=== PATIENT | male | born 1945 | race Caucasian/White ===

== ENCOUNTER → 2016-11-22 | Outpatient (CLI) | payer MEDICARE, OTHER ==
[~2016-11-22] MED LIST: CYCL-36 PO; GABA600T PO; LISI-360 PO; METO25CR PO; MORP20SO PO; PLAV75TA PO
[2016-11-22 10:08] LABS: HEMATOCRIT 39.2 % (39.0-51.0); MEAN CELL VOLUME 89.5 FL (80.0-100.0); MEAN CORPUSCULAR HEMOGLOBIN 29.8 PG (27.0-34.0); MEAN CORPUSCULAR HGB CONC 33.3 % (32.0-36.0); PLATELET COUNT 379 TH/MM3 (150-450); RED BLOOD COUNT 4.38 MIL/MM3 (4.50-5.90); RED CELL DISTRIBUTION WIDTH 14.5 % (11.6-17.2); REVIEW FLAG FINAL; WHITE BLOOD COUNT 10.8 TH/MM3 (4.0-11.0)
[2016-11-22 10:40] LABS: ALKALINE PHOSPHATASE 194 U/L (45-117); ALT (GPT) 16 U/L (12-78); ANION GAP 6 MEQ/L (5-15); AST (GOT) 16 U/L (15-37); BICARBONATE 29.3 MEQ/L (21.0-32.0); BLOOD UREA NITROGEN 8 MG/DL (7-18); CHLORIDE 104 MEQ/L (98-107); GLOMERULAR FILTRATION RATE 93 ML/MIN (>89); GLUCOSE,FASTING 90 MG/DL (74-99); HDL CHOLESTEROL 40.3 MG/DL (40.0-60.0); LDL CHOLESTEROL 74 MG/DL (0-99); POTASSIUM 3.7 MEQ/L (3.5-5.1); SODIUM (NA) 139 MEQ/L (136-145); TOTAL BILIRUBIN ADULT 0.3 MG/DL (0.2-1.0)
== END ==
LOC: PLAB 08:22
PROVIDERS: ATTEND Family Medicine
DX: G89.29 Other chronic pain (principal); I25.10 Atherosclerotic heart disease of native coronary artery without angina pectoris; M51.9 Unspecified thoracic, thoracolumbar and lumbosacral intervertebral disc disorder; R73.01 Impaired fasting glucose; I10 Essential (primary) hypertension; E78.4 Other hyperlipidemia
CPT/HCPCS: 36415; 80053; 80061; 84443; 85027

== ENCOUNTER → 2016-12-15 | Outpatient (CLI) | payer MEDICARE, OTHER ==
[2016-12-17 23:52] LABS: THYROGLOB ABS LESS THAN 1 IU/mL (< OR = 1); THYROGLOBULN 30.7 ng/mL (())
== END ==
LOC: PLAB 07:53
PROVIDERS: ATTEND Family Medicine
DX: E78.4 Other hyperlipidemia (principal)
CPT/HCPCS: 36415; 84432; 84443; 86376; 86800

== ENCOUNTER → 2017-01-31 | Outpatient (CLI) | payer MEDICARE, OTHER | LOC: PLAB 08:51 | PROVIDERS: ATTEND Family Medicine | DX: E03.8 Other specified hypothyroidism (principal) | CPT/HCPCS: 36415; 84443 ==

== ENCOUNTER → 2017-03-22 | Outpatient (CLI) | payer MEDICARE, OTHER ==
[2017-03-22 10:05] LABS: HEMATOCRIT 41.6 % (39.0-51.0); MEAN CELL VOLUME 89.4 FL (80.0-100.0); MEAN CORPUSCULAR HEMOGLOBIN 29.6 PG (27.0-34.0); MEAN CORPUSCULAR HGB CONC 33.1 % (32.0-36.0); PLATELET COUNT 368 TH/MM3 (150-450); RED BLOOD COUNT 4.65 MIL/MM3 (4.50-5.90); RED CELL DISTRIBUTION WIDTH 14.7 % (11.6-17.2); REVIEW FLAG FINAL; WHITE BLOOD COUNT 12.6 TH/MM3 (4.0-11.0)
[2017-03-22 10:56] LABS: ANION GAP 10 MEQ/L (5-15); AST (GOT) 25 U/L (15-37); BICARBONATE 26.9 MEQ/L (21.0-32.0); BLOOD UREA NITROGEN 9 MG/DL (7-18); CHLORIDE 103 MEQ/L (98-107); GLOMERULAR FILTRATION RATE 97 ML/MIN (>89); GLUCOSE,FASTING 83 MG/DL (74-99); POTASSIUM 3.5 MEQ/L (3.5-5.1); SODIUM (NA) 140 MEQ/L (136-145)
[2017-03-22 11:09] LABS: ALKALINE PHOSPHATASE 202 U/L (45-117); ALT (GPT) 34 U/L (12-78); HDL CHOLESTEROL 35.7 MG/DL (40.0-60.0); LDL CHOLESTEROL 43 MG/DL (0-99); TOTAL BILIRUBIN ADULT 0.3 MG/DL (0.2-1.0)
[2017-03-22 12:55] LABS: HEMOGLOBIN A1a 1.7 %; HEMOGLOBIN A1b 0.9 %; HEMOGLOBIN Ao 83.9 %; HEMOGLOBIN F 1.2 %; HEMOGLOBIN P3 3.7 %
== END ==
LOC: PLAB 06:59
PROVIDERS: ATTEND Family Medicine
DX: I83.10 Varicose veins of unspecified lower extremity with inflammation (principal); G89.29 Other chronic pain; I25.10 Atherosclerotic heart disease of native coronary artery without angina pectoris; M51.9 Unspecified thoracic, thoracolumbar and lumbosacral intervertebral disc disorder; R73.01 Impaired fasting glucose; I10 Essential (primary) hypertension; E78.4 Other hyperlipidemia
CPT/HCPCS: 36415; 80053; 80061; 83036; 84443; 85027

== ENCOUNTER → 2017-04-01 | Outpatient (CLI) | payer MEDICARE, OTHER ==
[~2017-04-01] MED LIST changes: +CYCL1TAB29 PO; +GABA100C4 PO; +LEVO50TA4 PO; +LISI10TA3 PO; +METO25TA3 PO; +MORP1TAB25 PO; +PLAV75TA29 PO; +SIMV5TAB3 PO; +TRAZ100T6 PO
[2017-04-01 09:10] LABS: MEAN CELL VOLUME 89.4 FL (80.0-100.0); MEAN CORPUSCULAR HEMOGLOBIN 28.7 PG (27.0-34.0); MEAN CORPUSCULAR HGB CONC 32.1 % (32.0-36.0); PLATELET COUNT 299 TH/MM3 (150-450); RED BLOOD COUNT 4.36 MIL/MM3 (4.50-5.90); RED CELL DISTRIBUTION WIDTH 15.3 % (11.6-17.2); REVIEW FLAG FINAL; WHITE BLOOD COUNT 11.4 TH/MM3 (4.0-11.0)
[2017-04-01 09:16] LABS: BLOOD, URINE NEG (NEG); GLUCOSE,URINE NEG (NEG); KETONE, URINE NEG (NEG); NITRITE,URINE NEG (NEG); PH, URINE 6.5 (5.0-8.5); URINE COLOR YELLOW (YELLW/STRAW)
[2017-04-01 09:17] LABS: APTT (PATIENT) 28.1 SEC (24.3-30.1); PROTHROMBIN TIME - PATIENT 11.6 SEC (9.8-11.6)
[2017-04-01 09:23] LABS: COMMENT (UR) CULT NOT INDICATED; CULTURE IF INDICATED CULT NOT INDICATED
[2017-04-01 09:39] LABS: BICARBONATE 25.7 MEQ/L (21.0-32.0); POTASSIUM 4.3 MEQ/L (3.5-5.1)
--- NOTE | 2017-04-01 13:40 | EKG ---
Date Performed: 04/01/2017 Time Performed: 08:46:46 PTAGE: 71 years EKG: Sinus rhythm INCOMPLETE RIGHT BUNDLE BRANCH BLOCK BORDERLINE ECG Compared to prior tracing no significant change PREVIOUS TRACING 08/13/2011 [id number] DOCTOR: Renzo Vides Interpretating Date/Time 04/01/2017 13:37:08
== END ==
LOC: CPRE 07:56
PROVIDERS: ATTEND Orthopaedic Surgery
DX: Z01.810 Encounter for preprocedural cardiovascular examination (principal); Z01.812 Encounter for preprocedural laboratory examination; M16.11 Unilateral primary osteoarthritis, right hip; I25.10 Atherosclerotic heart disease of native coronary artery without angina pectoris; M79.609 Pain in unspecified limb; R94.31 Abnormal electrocardiogram [ECG] [EKG]
CPT/HCPCS: 36415; 80048; 81001; 85027; 85610; 85730; 93005

== ENCOUNTER → 2017-04-11 | Day surgery (SDC) | payer MEDICARE, OTHER ==
[~2017-04-11] VITALS: Ht 185.4 cm; Wt 83.5 kg
[~2017-04-11] MED LIST changes: +ACETAMINOPHEN/HYDROcodone 325 MG/7.5 MG TAB PO PRN; +ASPIRIN EC 81 MG TABEC PO SCH; +CHLORHEXIDINE GLUCONATE 2 % 1 PACK (2 CLOTHS) TOPICAL PRN; +CHLORHEXIDINE GLUCONATE 4% SOLN 120 ML BTL TOPICAL SCH; -CYCL-36 PO; +DOCUSATE SODIUM 100 MG CAP PO SCH; +EXPAREL PERI-ARTICULAR INJECTION (TOTAL VOL. 60 ML) P-ARTICULR SCH; -GABA600T PO; +INSULIN HUMAN REGULAR 1,000 UNITS/10 ML VIAL SQ PRN; +KETOROLAC TROMETHAMINE 30 MG/ML (IVP) VIAL IVP SCH; +LACTATED RINGER'S 1000 ML INJ 1,000 ML IV SCH; +LACTATED RINGER'S 1000 ML IV PRN; -LISI-360 PO; +MAGNESIUM HYDROXIDE SUSP 30 ML CUP PO PRN; -METO25CR PO; +METOPROLOL TARTRATE 25 MG TAB PO PRN; -MORP20SO PO; +ONDANSETRON HCL 4 MG/2 ML VIAL IVP PRN; -PLAV75TA PO; +POVIDONE IODINE 5% (ANTISEPSIS KIT) 4 APPLICATIONS EACH NARE PRN; +Post-op Orders (for Pharmacy) MISC XX ONE; +SODIUM CHLORID 0.9% 500 ML IV PRN; +SODIUM CHLORIDE 0.9% FLUSH 5 ML FLUSH IVF PRN; +SODIUM CHLORIDE 0.9% FLUSH 5 ML FLUSH IVF SCH; +SODIUM CHLORIDE 0.9% IV SCH; +TRANEXAMIC ACID INJ 0 MG in SODIUM CHLORIDE 0.9% INJ 100 ML IV SCH; +TRANEXAMIC ACID IV SCH; +ZOLPIDEM TARTRATE 5 MG TAB PO PRN; +ceFAZolin 2 GM PREMIX 50 ML IV SCH
[2017-04-11 07:30] VITALS: BP 172/87; PULSE 87; RESP 18; TEMP 98.2; O2SAT 98
== END | disposition home or self-care (01) ==
LOC: HSDC 07:21 → UNDOADMIN 07:21 → HSDI 07:21 → EDSTATUS 10:00 → HSDI 04-12 06:48 → UNDOADMIN 04-12 06:48 → HSDC 04-12 06:51
PROVIDERS: ATTEND Orthopaedic Surgery
DX: M16.11 Unilateral primary osteoarthritis, right hip (principal); Z53.09 Procedure and treatment not carried out because of other contraindication
CPT/HCPCS: 99211; G0463

== ENCOUNTER 2017-04-25 15:18 | Inpatient (IN) | payer MEDICARE, OTHER ==
[~2017-04-25] VITALS: Ht 185.4 cm; Wt 86.8 kg
[~2017-04-25 15:18] MED LIST changes: -ACETAMINOPHEN/HYDROcodone 325 MG/7.5 MG TAB PO PRN; -ASPIRIN EC 81 MG TABEC PO SCH; -CHLORHEXIDINE GLUCONATE 2 % 1 PACK (2 CLOTHS) TOPICAL PRN; -CHLORHEXIDINE GLUCONATE 4% SOLN 120 ML BTL TOPICAL SCH; -DOCUSATE SODIUM 100 MG CAP PO SCH; -EXPAREL PERI-ARTICULAR INJECTION (TOTAL VOL. 60 ML) P-ARTICULR SCH; -INSULIN HUMAN REGULAR 1,000 UNITS/10 ML VIAL SQ PRN; -KETOROLAC TROMETHAMINE 30 MG/ML (IVP) VIAL IVP SCH; -LACTATED RINGER'S 1000 ML INJ 1,000 ML IV SCH; -LACTATED RINGER'S 1000 ML IV PRN; -MAGNESIUM HYDROXIDE SUSP 30 ML CUP PO PRN; -METOPROLOL TARTRATE 25 MG TAB PO PRN; -ONDANSETRON HCL 4 MG/2 ML VIAL IVP PRN; -POVIDONE IODINE 5% (ANTISEPSIS KIT) 4 APPLICATIONS EACH NARE PRN; -Post-op Orders (for Pharmacy) MISC XX ONE; -SODIUM CHLORID 0.9% 500 ML IV PRN; -SODIUM CHLORIDE 0.9% FLUSH 5 ML FLUSH IVF PRN; -SODIUM CHLORIDE 0.9% FLUSH 5 ML FLUSH IVF SCH; -SODIUM CHLORIDE 0.9% IV SCH; -TRANEXAMIC ACID INJ 0 MG in SODIUM CHLORIDE 0.9% INJ 100 ML IV SCH; -TRANEXAMIC ACID IV SCH; -ZOLPIDEM TARTRATE 5 MG TAB PO PRN; -ceFAZolin 2 GM PREMIX 50 ML IV SCH
[2017-04-26] MEDS ORDERED: CHLORHEXIDINE GLUCONATE 2 % 1 PACK (2 CLOTHS) TOPICAL PRN (08:00)
[2017-04-26] MEDS ORDERED: SODIUM CHLORID 0.9% 500 ML IV PRN (08:00)
[2017-04-26] MEDS ORDERED: POVIDONE IODINE 5% (ANTISEPSIS KIT) 4 APPLICATIONS EACH NARE PRN (08:00)
[2017-04-26] MEDS ORDERED: METOPROLOL TARTRATE 25 MG TAB PO PRN (08:00)
[2017-04-26] MEDS ORDERED: LACTATED RINGER'S 1000 ML IV PRN (08:00)
[2017-04-26] MEDS ORDERED: INSULIN HUMAN REGULAR 1,000 UNITS/10 ML VIAL SQ PRN (08:00)
[2017-04-26] MEDS ORDERED: CHLORHEXIDINE GLUCONATE 4% SOLN 120 ML BTL TOPICAL SCH (08:15)
[2017-04-26] MEDS ORDERED: ceFAZolin 2 GM PREMIX 50 ML IV SCH (08:15)
[2017-04-26] MEDS ORDERED: GENTAMICIN SULFATE 80 MG/2 ML VIAL ONE (08:26)
[2017-04-26 08:30] VITALS: BP 134/77; PULSE 68; RESP 18; TEMP 98.5; O2SAT 99
[2017-04-26] MEDS ORDERED: EXPAREL PERI-ARTICULAR INJECTION (TOTAL VOL. 60 ML) P-ARTICULR SCH ×2 (09:00)
[2017-04-26] MEDS ORDERED: SODIUM CHLORIDE 0.9% IV SCH ×2 (09:00→12:00)
[2017-04-26] MEDS ORDERED: TRANEXAMIC ACID IV SCH ×2 (09:00→12:00)
[2017-04-26] MEDS ORDERED: fentaNYL CITRATE 250 MCG/5 ML AMP ONE (09:18)
[2017-04-26] MEDS ORDERED: DEXAMETHASONE SOD PHOS 4 MG/ML VIAL ONE (09:18)
[2017-04-26] MEDS ORDERED: MIDAZOLAM HCL 2 MG/2 ML VIAL ONE (09:18)
[2017-04-26] MEDS ORDERED: ACETAMINOPHEN 1000 MG/100 ML VIAL IV ONE (09:18)
[2017-04-26] MEDS ORDERED: FAMOTIDINE 20 MG/2 ML VIAL ONE (09:19)
[2017-04-26] MEDS ORDERED: SODIUM CHLORIDE 0.9% FLUSH 5 ML FLUSH IVF PRN (09:30)
[2017-04-26] MEDS ORDERED: BISACODYL 10 MG SUPP RECTAL PRN (09:30)
[2017-04-26] MEDS ORDERED: ONDANSETRON HCL 4 MG/2 ML VIAL IVP PRN (09:30)
[2017-04-26] MEDS ORDERED: MORPHINE SULFATE 8 MG/ML INJ IV PUSH PRN (09:30)
[2017-04-26] MEDS ORDERED: ACETAMINOPHEN/HYDROcodone 325 MG/7.5 MG TAB PO PRN (09:30)
[2017-04-26] MEDS ORDERED: TRANEXAMIC ACID INJ 0 MG in SODIUM CHLORIDE 0.9% INJ 100 ML IV SCH (09:30)
[2017-04-26] MEDS ORDERED: Post-op Orders (for Pharmacy) MISC XX ONE (09:30)
[2017-04-26] MEDS ORDERED: ONDANSETRON HCL 4 MG/2 ML VIAL IV PUSH ONE (12:00)
[2017-04-26] MEDS ORDERED: PROPOFOL 200 MG/20 ML AMP IV ONE (12:00)
[2017-04-26] MEDS ORDERED: LACTATED RINGER'S 1000 ML INJ 1,000 ML IV ONE (12:00)
[2017-04-26] MEDS ORDERED: NEOSTIGMINE 3 MG/3 ML SYR IV ONE (12:00)
[2017-04-26] MEDS ORDERED: PHENYLEPH/NS 1000 MCG/10 ML SYR IV ONE (12:00)
[2017-04-26] MEDS ORDERED: ePHEDrine/NS 25 MG/5 ML SYR IV ONE (12:00)
[2017-04-26] MEDS ORDERED: *morphine SULFATE 8 MG/ML PERIprocedure ONLY ONE ×2 (12:14→12:19)
[2017-04-26] MEDS: LACTATED RINGER'S 1000 ML INJ 1,000 ML IV SCH ×2 (12:32→20:35)
[2017-04-26] MEDS: KETOROLAC TROMETHAMINE 30 MG/ML (IVP) VIAL IVP SCH ×3 (12:35→22:39)
--- NOTE | 2017-04-26 12:49 | RADRPT ---
EXAM DATE/TIME: 04/26/2017 12:17 [place] COMPARISON: No previous studies available for comparison. INDICATIONS : Post op right hip arthroplasty. MEDICAL HISTORY : None. SURGICAL HISTORY : None. ENCOUNTER: Initial ACUITY: 1 day PAIN SCORE: 6/10 LOCATION: Right hip FINDINGS: AP and lateral views of the right hip joint following total hip arthroplasty demonstrate non-cemented acetabular and femoral hardware in place. There are 2 acetabular screws visualized. Soft tissue air is present, as expected. No concerning abnormality is identified. CONCLUSION: Expected changes are identified following recent right total hip arthroplasty. Chuck Sanchez MD on April 26, 2017 at 12:46 Board Certified Radiologist. This report was verified electronically.
[2017-04-26] MEDS ORDERED: DO NOT ADM ANY ANTICOAGULANT DRUGS PRN (13:00)
[2017-04-26 13:23] VITALS: BP 142/74; PULSE 68; RESP 17; TEMP 96.6; O2SAT 99
[2017-04-26] MEDS: CYCLOBENZAPRINE HCL 10 MG TAB PO SCH ×2 (13:27→18:27)
[2017-04-26] MEDS: MORPHINE SULFATE 30 MG CONTROLLED RELEASE TAB PO SCH ×2 (13:27→20:34)
--- NOTE | 2017-04-26 15:07 | PD.CONS ---
HPI Service [facility] Hospitalists Consult Requested By Dr. Krishnamurthy Reason for Consult Medical management. Primary Care Physician Yolande Krause MD Diagnoses: (1) Primary osteoarthritis of right hip (2) Status post total hip replacement, right History of Present Illness Written by Iris Hernandez, acting as scribe for Dr. Guzman on 04/26/17 at 17: 00. Mr. Lainez is a 71-year-old male patient with a known medical history of hypertension and hyperlipidemia who underwent a right total hip replacement today by Dr. Krishnamurthy. Hospitalist team has been consulted for medical management. Patient states that he has suffered from osteoarthritis of the lower spine and right hip which was conservatively managed in the outpatient setting. Patient has noticed over the past couple months that the pain from his right hip and groin area, worsened and patient eventually obtained an MRI relieving severe osteoarthritis. Denies any recent illness including fever, chills, cough, shortness of breath, abdominal pain, nausea, vomiting, diarrhea or dysuria. PCP is Dr. Krause. Hay Baler is Dr. Carvajal whom saw patient prior to surgery and performed a stress test which was negative. Review of Systems Musculoskeletal: COMPLAINS OF: Joint pain (right hip pain) Except as stated in HPI: all other systems reviewed are Neg Past Family Social History Allergies: Coded Allergies: Ultram (Verified Allergy, Unknown, Swelling, 04/26/17) STATES HE IS NOT ALLERGIC TO ULTRAM AND HAS BEEN ON IT FOR MANY YEARS Past Medical History Osteoarthritis of the right hip and lower lumbar spine Hyperlipidemia Hypertension Chronic nerve pain Cardiac stent x 2 Chronic hip and back pain Hypothyroidism Past Surgical History Bilateral cataract surgery Hernia repair with mesh placement Lumbar back fusion 2003 Splenectomy with benign pancreas tumor 2007 Left elbow fusion, ulnar damage Cardiac stent placement x 2 Reported Medications Reported Meds & Active Scripts Active Reported Simvastatin 5 Mg Tab 8 Mg PO DAILY Levothyroxine (Levothyroxine Sodium) 50 Mcg Tab 50 Mcg PO DAILY Trazodone (Trazodone HCl) 100 Mg Tablet 200 Mg PO HS Morphine ER (Morphine Sulfate) 30 Mg Tab 30 Mg PO Q8H Metoprolol Tartrate 25 Mg Tab 25 Mg PO BID Lisinopril 10 Mg Tab 10 Mg PO DAILY Gabapentin 100 Mg Cap 150 Mg PO QID PT REPORTS THAT HIS DOSE IS 150MG Flexeril (Cyclobenzaprine HCl) 10 Mg Tab 10 Mg PO TID Plavix (Clopidogrel Bisulfate) 75 Mg Tab 75 Mg PO DAILY Active Ordered Medications Current Medications Medications (Trade) Dose Ordered Sig/Severino Route Start Time Stop Time Status Last Admin Lactated Ringer's 1,000 ml @ 30 mls/hr Q24H PRN IV 04/26/17 08:00 04/29/17 07:59 04/26/17 08:25 (NS 500 ml Inj) 500 ml @ 30 mls/hr [id number] PRN IV 04/26/17 08:00 04/29/17 07:59 Chlorhexidine Gluconate 1 applic 1 applic ONCE TOPICAL 04/26/17 08:15 04/29/17 08:14 04/26/17 08:20 Tranexamic Acid 835 mg/Sodium Chloride 108.35 ml @ 200 mls/ hr ONCE IV 04/26/17 09:00 04/27/17 15:00 04/26/17 09:38 Tranexamic Acid 835 mg/Sodium Chloride 108.35 ml @ 200 mls/ hr ONCE IV 04/26/17 12:00 04/27/17 18:00 04/26/17 12:33 Bupivacaine Liposome 20 ml/ Sodium Chloride 60 ml @ 120 mls/hr ONCE P-ARTICULR 04/26/17 09:00 04/27/17 15:00 04/26/17 09:59 (Lr 1000 ml Inj) 1,000 ml @ 80 mls/hr [id number] IV 04/26/17 10:00 04/26/17 12:32 (NS Flush) 2 ml UNSCH PRN IVF 04/26/17 09:30 IV Flush 2 ml 2 ml BID IVF 04/26/17 21:00 (Ancef Inj/NS Inj) 100 ml @ 200 mls/hr Q6H IV 04/26/17 17:00 04/27/17 05:29 04/26/17 16:15 (Morphine Inj) 5 mg Q3H PRN IV PUSH 04/26/17 09:30 ([place] 7.5-325 Mg) 1 tab Q4H PRN PO 04/26/17 09:30 ([place] 7.5-325 Mg) 2 tab Q4H PRN PO 04/26/17 09:30 04/26/17 16:25 (Toradol Inj) 15 mg Q6H IVP 04/26/17 11:00 04/28/17 05:01 04/26/17 16:28 (Zofran Inj) 4 mg Q6H PRN IVP 04/26/17 09:30 (Colace) 100 mg BID PO 04/27/17 21:00 (Ambien) 5 mg HS PRN PO 04/26/17 09:30 (Dulcolax Supp) 10 mg DAILY PRN RECTAL 04/26/17 09:30 (Milk Of Magnesia Liq) 30 ml DAILY PRN PO 04/26/17 09:30 (Ecotrin Ec) 81 mg BID PO 04/26/17 21:00 (Flexeril) 10 mg TID PO 04/26/17 13:00 04/26/17 13:27 (Neurontin Liq) 150 mg QID PO 04/26/17 13:00 04/26/17 16:15 (Synthroid) 50 mcg DAILY@06 PO 04/27/17 06:00 (Prinivil) 10 mg DAILY PO 04/27/17 09:00 (Lopressor) 25 mg BID PO 04/26/17 21:00 (Oramorph Sr) 30 mg Q8H PO 04/26/17 13:00 04/26/17 13:27 Non-Formulary Medication 8 mg DAILY PO 04/27/17 09:00 UNV (Desyrel) 200 mg HS PO 04/26/17 21:00 Miscellaneous Information ALL NURSING DEPARTME... UNSCH PRN .XX 04/26/17 13:00 04/27/17 12:59 Family History Maternal family medical history include lung cancer and kidney cancer. Social History Patient is . Has two sons. Admits to quitting smoking 1 month ago. Denies any alcohol use. Denies any illicit drug use. Physical Exam Vital Signs Vital Signs Date Time Temp Pulse Resp B/P Pulse Ox O2 Delivery O2 Flow Rate FiO2 04/26/17 13:23 96.6 68 17 142/74 99 04/26/17 12:45 97.6 69 13 132/64 99 Nasal Cannula 2 04/26/17 12:30 69 16 118/63 99 Nasal Cannula 2 04/26/17 12:15 65 19 112/56 99 Nasal Cannula 2 04/26/17 12:03 97.7 58 14 112/56 100 Simple Mask 6 04/26/17 08:30 98.5 68 18 134/77 99 Physical Exam GENERAL: Well-nourished, well-developed male patient, in no apparent distress. SKIN: No rashes, ecchymoses or lesions. Warm and dry. HEAD: Atraumatic. Normocephalic. Pupils equal round and reactive. Extraocular motions intact. No scleral icterus. No injection or drainage. Nose without bleeding. Airway patent. NECK: Trachea midline. No JVD. Supple. CARDIOVASCULAR: Regular rate and rhythm. No murmur appreciated. RESPIRATORY: Clear to auscultation. Breath sounds equal bilaterally. No wheezes , rales, or rhonchi. GASTROINTESTINAL: Abdomen soft, non-tender, nondistended. No guarding. MUSCULOSKELETAL: Extremities without clubbing, cyanosis, or edema. No joint tenderness, effusion, or edema noted. Left hip dressing intact, clean, no ecchymosis. Right BKA noted. NEUROLOGICAL: Awake and alert. Cranial nerves II through XII intact. Motor and sensory grossly within normal limits. Five out of 5 muscle strength in all muscle groups. Normal speech. Right pedal pulses 2+. Laboratory Laboratory Tests Test 04/26/17 08:20 Blood Type O POSITIVE Antibody Screen NEGATIVE Date/Time Procedure Status Source Growth 04/26/17 12:06 Gram Stain Received Wound Other Pending 04/26/17 12:06 Wound Culture Received Wound Other Pending 04/26/17 12:06 Fungal Smear Received Wound Other Pending 04/26/17 12:06 Fungal Culture Received Wound Other Pending 04/26/17 12:06 Acid Fast Stain Received Wound Other Pending 04/26/17 12:06 Mycobacterial Culture Received Wound Other Pending Imaging Last Impressions Hip X-Ray 04/26/17 0000 Signed Impressions: Service Date/Time: Wednesday, April 26, 2017 12:17 - CONCLUSION: Expected changes are identified following recent right total hip arthroplasty. Chuck Sanchez MD Assessment and Plan Assessment and Plan Mr. Lainez is a 71-year-old male patient with a known medical history of hypertension and hyperlipidemia who underwent a right total hip replacement today by Dr. Krishnamurthy. Hospitalist team has been consulted for medical management. Status post right total hip replacement - Post op day #0, 04/26/17 - Control pain. Morphine 30 mg PO q8hr. Toradol 15 mg q6h IV. [place] q4h PRN per pain scale. Morphine 5 mg IV q3h PRN breakthrough pain. - Monitor for constipation. Continue Colace 100 mg PO BID. Milk of magnesium and Dulcolax PRN. - Control nausea, no complaints at this time. Zofran 4 mg q6hr PRN. - PT ordered. - Dressing changes and chemical prophylaxis per orthopedic surgeon. Hypertension, chronic: Controlled. Continue home medications. Hyperlipidemia, chronic: Continue home medications. Other chronic medical problems include chronic nerve pain, depression, hypothyroidism and CAD which are stable at this time. Home medications continued as indicated. Thank you for this consultation. Will follow with you. This note was transcribed by leighann Hernandez. I, Dr. Ren Pacheco personally performed the history, physical exam, and medical decision making; and confirmed the accuracy of the information in the transcribed note. Authenticated by Dr. Ren Pacheco on 04/26/17 at 17:00. Iris Hernandez Apr 26, 2017 15:07 Ren Carbajal MD Apr 27, 2017 12:36
[2017-04-26 16:00] VITALS: BP 145/71; PULSE 85; RESP 16; TEMP 96.6; O2SAT 95
[2017-04-26] MEDS: GABAPENTIN 250 MG/5 ML UDC PO SCH ×3 (16:15→20:35)
[2017-04-26] MEDS: ACETAMINOPHEN/HYDROcodone 325 MG/7.5 MG TAB PO PRN ×2 (16:25→20:34)
--- NOTE | 2017-04-26 19:20 | MP ---
cc: Rohit DUPONT. DATE OF SURGERY 04/26/2017 PREOPERATIVE DIAGNOSIS Primary osteoarthritis, right hip. POSTOPERATIVE DIAGNOSIS Primary osteoarthritis, right hip. OPERATION PERFORMED Right total hip arthroplasty using Anna prosthesis. SURGEON Kaden Dupont MD DYE RANGE TENDER JEFFREY Jones ANESTHESIA General endotracheal with supplemental local. INDICATIONS AND FINDINGS A 71-year-old man has had right hip pain for several months with progressive increase in pain and functionally disabling activities of daily living. 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 Because of the extent of pain in his hip he has not responded well to conservative measures. He has used analgesics, anti-inflammatory agents, activity modification, exercises and the use of ambulatory aids. This has not helped him. Physical findings showed that he has below-knee amputation on the left and an ankle arthrodesis on the left. He also has limited motion in the right hip with tenderness and pain in the right hip. X-rays and MRI show significant arthritis with degenerative change, osteophytes and changes with cysts in the acetabulum especially. The prosthesis used was a Anna prosthesis with the acetabular component being a titanium hemispherical cluster shell size 58 mm outer diameter with an X3 polyethylene Trident insert 0 degrees with a 36 mm inner diameter. there were two screws used. The femoral component was an Accolade II size 8 x 132 degrees neck angle. The femoral head with a Biolox Delta ceramic head size 36 mm with a +0 mm neck length. PROCEDURE The patient was brought to the clean-air operating suite and a general anesthetic was administered. He could not have a spinal anesthetic because of history of inability to access the spinal canal with needles. He received prophylactic antibiotics in the form of Ancef. He received tranexamic acid to help with hemostasis. After general anesthetic was administered he was positioned in a lateral position on a Biomet lateral positioner with an axillary roll under the left shoulder. The left hip was then prepped with alcohol, Hibiclens and Chloraprep and draped in the usual manner with the hip draped free. An appropriate time-out procedure was carried out. Local anesthesia was administered in the incision site. The incision was then made going from about 15 cm proximal and posterior to the greater trochanter to the upper one third of the greater trochanter. The incision was deepened through the subcutaneous tissues to the fascia anat gluteus fascia which was incised in line with the fibers in the skin incision. Only the upper 2 cm of the fascia anat was incised. The capsule was exposed. The piriformis and obturator external tendons were transected off the posterior aspect of the greater trochanter where it reflected off the capsule. Capsulotomy was then carried out longitudinally and then carried distally along the femoral neck and superiorly. This was also extended at the acetabulum. The hip was dislocated. Femoral neck was transected with the oscillating saw. The femoral head was removed. At this point a 1 cm diameter cyst was identified in the neck of the femur. The head fragment also had this. This was scooped out and added to the specimen cup for eventual biopsy. Femoral preparation then commenced using box osteotome followed by a canal finding awl and a curette. Broaching was started at size 0 and went one size increments up to size 8. This was one side larger than the templated size. The size 8 stem was left seated. Hip was repositioned. Reaming of the acetabulum was then started at a size 49 when in 2 mm increments up to size 55 and then from there went in 1-mm increments to size 57. Trial reduction was carried out at this point. This had excellent position, alignment and fit. This was then removed. After cleaning acetabulum the 58 mm outer diameter titanium cluster cup was impacted into place and seated appropriately. Drill holes were made for screws. At this point some material was extracted from a drill hole and was sent for pathology as well. Screws were then placed. The acetabular liner was then impacted into place and seated appropriately. The trial reduction was carried out with a neutral neck length. The leg length appeared to be appropriate. The stability was excellent. There was no pistoning. The motion was excellent. Trial was removed. The broach was seated slightly more. Calcar planing was carried out. The broach was then removed. The medullary canal was cleaned with pulse lavage. The femoral component was then impacted into place and seated appropriately. The trial reduction was carried out again and showed even better stability and mobility. At this point the trial head was changed to the Biolox Delta head. This showed excellent position and alignment. The stability was excellent. Range of motion was excellent. There was no pistoning. The leg lengths were appropriate. Prior to placement of the implants the hip was injected with Exparel in the articular area. Capsular closure was then carried out using #1 Vicryl interrupted transosseous sutures using a crack out technique. The upper portion of the capsule was repaired with a #1 Vicryl continuous locking suture. The external rotators were reattached with #1 Vicryl interrupted transosseous sutures with a crack out technique. The sciatic nerve was identified and found to be unmolested. The fascia anat and gluteus fascia were repaired with #1 Vicryl interrupted [id number] sutures. Subcutaneous sutures were closed with 2-0 Vicryl interrupted simple sutures with buried knots. The skin was closed with a continuous subcuticular closure of 4-0 Monocryl. The wound was dressed with Steri-Strips followed by dry dressing and Medipore compression dressing. The knee was placed into a knee immobilizer. The patient was transferred to the recovery room in satisfactory condition having tolerated the procedure well. Counts were correct. Specimen, femoral head, the cystic lesion from the femoral neck and acetabular screw reamings. MD FLO Vasquez/STEPHAN /11:49 AM /6:54 PM
[2017-04-26 19:42] VITALS: BP 144/71; PULSE 87; RESP 18; TEMP 96.7; O2SAT 98
[2017-04-26] MEDS: MAGNESIUM HYDROXIDE SUSP 30 ML CUP PO PRN (20:32)
[2017-04-26] MEDS: traZODone HCL 100 MG TAB PO SCH (20:32)
[2017-04-26] MEDS: METOPROLOL TARTRATE 25 MG TAB PO SCH (20:34)
[2017-04-26] MEDS: SODIUM CHLORIDE 0.9% FLUSH 5 ML FLUSH IVF SCH (20:35)
[2017-04-26] MEDS ORDERED: ASPIRIN EC 81 MG TABEC PO SCH (21:00)
[2017-04-26] MEDS: ZOLPIDEM TARTRATE 5 MG TAB PO PRN (22:38)
[2017-04-26 23:23] VITALS: BP 121/62; PULSE 75; RESP 19; TEMP 96.6; O2SAT 95
[2017-04-27] MEDS: ACETAMINOPHEN/HYDROcodone 325 MG/7.5 MG TAB PO PRN ×4 (03:54→20:19)
[2017-04-27] MEDS: MORPHINE SULFATE 30 MG CONTROLLED RELEASE TAB PO SCH ×3 (03:54→21:41)
[2017-04-27] MEDS: KETOROLAC TROMETHAMINE 30 MG/ML (IVP) VIAL IVP SCH ×4 (03:55→23:21)
[2017-04-27 04:22] VITALS: BP 125/61; PULSE 77; RESP 19; TEMP 96.7; O2SAT 97
[2017-04-27] MEDS: LEVOTHYROXINE SODIUM 50 MCG TAB PO SCH (04:51)
--- NOTE | 2017-04-27 07:08 | PD.ORT.PN ---
Subjective Post Op Day #: 1 Subjective Remarks Some pain in hip and knee. Distance Walked Transferred bed to wheelchair. Objective Vitals Vital Signs Date Time Temp Pulse Resp B/P Pulse Ox O2 Delivery O2 Flow Rate FiO2 04/27/17 04:22 96.7 77 19 125/61 97 04/26/17 23:23 96.6 75 19 121/62 95 04/26/17 19:42 96.7 87 18 144/71 98 04/26/17 16:00 96.6 85 16 145/71 95 04/26/17 13:23 96.6 68 17 142/74 99 04/26/17 12:45 97.6 69 13 132/64 99 Nasal Cannula 2 04/26/17 12:30 69 16 118/63 99 Nasal Cannula 2 04/26/17 12:15 65 19 112/56 99 Nasal Cannula 2 04/26/17 12:03 97.7 58 14 112/56 100 Simple Mask 6 04/26/17 08:30 98.5 68 18 134/77 99 I/O 04/26/17 04/26/17 04/26/17 04/27/17 04/27/17 04/27/17 07:00 15:00 23:00 07:00 15:00 23:00 Intake Total 1504 ml 710 ml 240 ml Output Total 350 ml 300 ml 375 ml Balance 1154 ml 410 ml -135 ml Intake Oral 800 ml 360 ml 240 ml IV Total 204 ml 350 ml Other 500 ml Output Urine Total 200 ml 300 ml 375 ml Estimated Blood Loss 150 ml # Voids 1 # Bowel Movements 0 0 Imaging Last 72 hours Impressions Hip X-Ray 04/26/17 0000 Signed Impressions: Service Date/Time: Wednesday, April 26, 2017 12:17 - CONCLUSION: Expected changes are identified following recent right total hip arthroplasty. Chuck Sanchez MD Objective Remarks Resting comfortably supine in bed. Neurovascular status is intact, Assessment & Plan Ortho Post Op Day #: 1 Problem List: (1) Status post total hip replacement, right Plan: Continue postop care and PT. Assessment and Plan Condition: Good. Orthopaedically stable. DVYT prophylaxis: TEDs, Plavix resumption, sequentials. Discharge plans: Home with HHC versus CIR versus SNF. Has appointment. Rx: [place] 7.5/325 Randy Krishnamurthy MD (Charles) Apr 27, 2017 07:08
[2017-04-27 07:42] VITALS: BP 134/72; PULSE 75; RESP 18; TEMP 96.7; O2SAT 93
[2017-04-27 07:52] LABS: HEMATOCRIT 32.1 % (39.0-51.0); REVIEW FLAG FINAL
[2017-04-27] MEDS: METOPROLOL TARTRATE 25 MG TAB PO SCH ×2 (08:38→21:41)
[2017-04-27] MEDS: CLOPIDOGREL 75 MG TAB PO SCH (08:38)
[2017-04-27] MEDS: CYCLOBENZAPRINE HCL 10 MG TAB PO SCH ×3 (08:38→17:19)
[2017-04-27] MEDS: LISINOPRIL 10 MG TAB PO SCH (08:39)
[2017-04-27] MEDS: GABAPENTIN 250 MG/5 ML UDC PO SCH ×4 (08:41→21:41)
[2017-04-27] MEDS: SODIUM CHLORIDE 0.9% FLUSH 5 ML FLUSH IVF SCH ×2 (09:00→21:48)
[2017-04-27] MEDS ORDERED: SIMVASTATIN PO SCH (09:00)
[2017-04-27] MEDS ORDERED: ASPIRIN EC 81 MG TABEC PO SCH (11:00)
[2017-04-27] MEDS: LACTATED RINGER'S 1000 ML INJ 1,000 ML IV SCH ×2 (11:00→23:22)
[2017-04-27 11:40] VITALS: BP 141/82; PULSE 81; RESP 18; TEMP 96.8; O2SAT 93
[2017-04-27 14:18] LABS: AUTOMATED NEUTROPHIL # 12.5 TH/MM3 (1.8-7.7); BASOPHIL # 0.1 TH/MM3 (0-0.2); BASOPHIL % 0.6 % (0.0-2.0); EOSINOPHIL # 0.3 TH/MM3 (0-0.4); EOSINOPHIL % 1.3 % (0.0-4.0); HEMATOCRIT 33.3 % (39.0-51.0); LYMPH % 28.4 % (9.0-44.0); LYMPHOCYTE # 5.7 TH/MM3 (1.0-4.8); MEAN CELL VOLUME 89.7 FL (80.0-100.0); MEAN CORPUSCULAR HGB CONC 33.4 % (32.0-36.0); MONO % 7.5 % (0.0-8.0); NEUT % 62.2 % (16.0-70.0); PLATELET COUNT 352 TH/MM3 (150-450); RED BLOOD COUNT 3.72 MIL/MM3 (4.50-5.90); RED CELL DISTRIBUTION WIDTH 15.5 % (11.6-17.2); WHITE BLOOD COUNT 20.2 TH/MM3 (4.0-11.0)
[2017-04-27 14:22] LABS: HEMO FLAGS AUTO DIFF
[2017-04-27 14:34] LABS: ALT (GPT) 57 U/L (12-78); ANION GAP 8 MEQ/L (5-15); AST (GOT) 37 U/L (15-37); BICARBONATE 26.7 MEQ/L (21.0-32.0); BLOOD UREA NITROGEN 17 MG/DL (7-18); CHLORIDE 105 MEQ/L (98-107); GLOMERULAR FILTRATION RATE 86 ML/MIN (>89); MAGNESIUM 2.3 MG/DL (1.5-2.5); POTASSIUM 3.8 MEQ/L (3.5-5.1); SODIUM (NA) 140 MEQ/L (136-145)
[2017-04-27 14:36] LABS: ALKALINE PHOSPHATASE 190 U/L (45-117); TOTAL BILIRUBIN ADULT 0.3 MG/DL (0.2-1.0)
[2017-04-27 15:24] LABS: BANDS 2 % (0-6); EOSINOPHILS 3 % (0-4); NEUTROPHIL # MANUAL DIFF 12.9 TH/MM3 (1.8-7.7); POLYS (SEG NEUTROPHILS) 62 % (16-70); WBC DIFF SAMPLE 100
[2017-04-27 15:30] LABS: PLATELET ESTIMATE SMEAR NORMAL (NORMAL); PLATELET MORPHOLOGY NORMAL (NORMAL); SCAN/DIFF FINAL DIFF MANUAL
[2017-04-27 16:00] VITALS: BP 140/68; PULSE 84; RESP 18; TEMP 98; O2SAT 94
--- NOTE | 2017-04-27 18:44 | HHI.PR ---
Subjective Remarks transfered from bed to wheelchair denies cp/sob vital signs stable Objective Vitals Vital Signs Date Time Temp Pulse Resp B/P Pulse Ox O2 Delivery O2 Flow Rate FiO2 04/27/17 16:00 98.0 84 18 140/68 94 04/27/17 11:40 96.8 81 18 141/82 93 04/27/17 07:42 96.7 75 18 134/72 93 04/27/17 07:32 Room Air 04/27/17 04:22 96.7 77 19 125/61 97 04/26/17 23:23 96.6 75 19 121/62 95 04/26/17 19:42 96.7 87 18 144/71 98 I/O 04/26/17 04/26/17 04/26/17 04/27/17 04/27/17 04/27/17 06:59 14:59 22:59 06:59 14:59 22:59 Intake Total 1504 ml 710 ml 937 ml 600 ml Output Total 350 ml 300 ml 375 ml 650 ml Balance 1154 ml 410 ml 562 ml -50 ml Intake Oral 800 ml 360 ml 240 ml 600 ml IV Total 204 ml 350 ml 697 ml Other 500 ml Output Urine Total 200 ml 300 ml 375 ml 650 ml Estimated Blood Loss 150 ml # Voids 1 # Bowel Movements 0 0 0 Result Diagram: 04/27/17 1331 04/27/17 1331 Imaging Last Impressions Hip X-Ray 04/26/17 0000 Signed Impressions: Service Date/Time: Wednesday, April 26, 2017 12:17 - CONCLUSION: Expected changes are identified following recent right total hip arthroplasty. Chuck Sanchez MD Objective Remarks GENERAL: Well-nourished, well-developed male patient, in no apparent distress. SKIN: No rashes, ecchymoses or lesions. Warm and dry. HEAD: Atraumatic. Normocephalic. Pupils equal round and reactive. Extraocular motions intact. No scleral icterus. No injection or drainage. Nose without bleeding. Airway patent. NECK: Trachea midline. No JVD. Supple. CARDIOVASCULAR: Regular rate and rhythm. No murmur appreciated. RESPIRATORY: Clear to auscultation. Breath sounds equal bilaterally. No wheezes , rales, or rhonchi. GASTROINTESTINAL: Abdomen soft, non-tender, nondistended. No guarding. MUSCULOSKELETAL: Extremities without clubbing, cyanosis, or edema. No joint tenderness, effusion, or edema noted. Left hip dressing intact, clean, no ecchymosis. Right BKA noted. NEUROLOGICAL: Awake and alert. Cranial nerves II through XII intact. Motor and sensory grossly within normal limits. Five out of 5 muscle strength in all muscle groups. Normal speech. Right pedal pulses 2+. Procedures sp Right total hip arthroplasty. Medications and IVs Current Medications Medications (Trade) Dose Ordered Sig/Severino Route Start Time Stop Time Status Last Admin Lactated Ringer's 1,000 ml @ 30 mls/hr Q24H PRN IV 04/26/17 08:00 04/29/17 07:59 04/26/17 08:25 (NS 500 ml Inj) 500 ml @ 30 mls/hr [id number] PRN IV 04/26/17 08:00 04/29/17 07:59 Chlorhexidine Gluconate 1 applic 1 applic ONCE TOPICAL 04/26/17 08:15 04/29/17 08:14 04/26/17 08:20 (Lr 1000 ml Inj) 1,000 ml @ 80 mls/hr [id number] IV 04/26/17 10:00 04/26/17 20:35 (NS Flush) 2 ml UNSCH PRN IVF 04/26/17 09:30 (NS Flush) 2 ml BID IVF 04/26/17 21:00 04/27/17 09:00 (Morphine Inj) 5 mg Q3H PRN IV PUSH 04/26/17 09:30 ([place] 7.5-325 Mg) 1 tab Q4H PRN PO 04/26/17 09:30 ([place] 7.5-325 Mg) 2 tab Q4H PRN PO 04/26/17 09:30 04/27/17 15:51 (Toradol Inj) 15 mg Q6H IVP 04/26/17 11:00 04/28/17 05:01 04/27/17 17:20 (Zofran Inj) 4 mg Q6H PRN IVP 04/26/17 09:30 (Colace) 100 mg BID PO 04/27/17 21:00 (Ambien) 5 mg HS PRN PO 04/26/17 09:30 04/26/17 22:38 (Dulcolax Supp) 10 mg DAILY PRN RECTAL 04/26/17 09:30 (Milk Of Magnesia Liq) 30 ml DAILY PRN PO 04/26/17 09:30 04/26/17 20:32 (Flexeril) 10 mg TID PO 04/26/17 13:00 04/27/17 17:19 (Neurontin Liq) 150 mg QID PO 04/26/17 13:00 04/27/17 17:20 (Synthroid) 50 mcg DAILY@06 PO 04/27/17 06:00 04/27/17 04:51 (Prinivil) 10 mg DAILY PO 04/27/17 09:00 04/27/17 08:39 (Lopressor) 25 mg BID PO 04/26/17 21:00 04/27/17 08:38 (Oramorph Sr) 30 mg Q8H PO 04/26/17 13:00 04/27/17 12:41 Non-Formulary Medication 8 mg DAILY PO 04/27/17 09:00 UNV (Desyrel) 200 mg HS PO 04/26/17 21:00 04/26/17 20:32 (Plavix) 75 mg DAILY PO 04/27/17 09:00 04/27/17 08:38 A/P Problem List: (1) Primary osteoarthritis of right hip ICD Code: M16.11 Status: Acute (2) Status post total hip replacement, right ICD Code: Z96.641 Status: Acute Assessment and Plan Mr. Lainez is a 71-year-old male patient with a known medical history of hypertension and hyperlipidemia who underwent a right total hip replacement today by Dr. Krishnamurthy. Hospitalist team has been consulted for medical management. Status post right total hip replacement - Post op day #1 - Control pain. Morphine 30 mg PO q8hr. Toradol 15 mg q6h IV. [place] q4h PRN per pain scale. Morphine 5 mg IV q3h PRN breakthrough pain. - Monitor for constipation. Continue Colace 100 mg PO BID. Milk of magnesium and Dulcolax PRN. - Control nausea, no complaints at this time. Zofran 4 mg q6hr PRN. - Patient tolerated PT - Dressing changes and chemical prophylaxis per orthopedic surgeon. Hypertension, chronic: Controlled. Continue Metoprolol. CAD: Patient is cp free. continue statin, beta odalis, [place] inhibitor Other chronic medical problems include chronic nerve pain, depression, hypothyroidism and CAD which are stable at this time. Home medications continued as indicated. Discharge Planning Dc as per primary Ren Carbajal MD Apr 27, 2017 18:44
[2017-04-27 19:35] VITALS: BP 156/74; PULSE 86; RESP 18; TEMP 99; O2SAT 93
--- NOTE | 2017-04-27 20:51 | HHI.FF ---
Face to Face Verification Diagnosis: (1) Status post total hip replacement, right (2) History of left below knee amputation (3) Ankylosis, left elbow Physical Therapy Gait training, Other (Use walker or cruthches with platform on left.) Hip: Total hip, Protocol: Right, Posterior hip precautions, Progress to weight bearing Canvas Knee Splint: When in bed & 2 pillows btw thighs Right LE Weight Bearing: WB as tolerated Right LE Range of Motion: Active ROM Nursing Nursing: Dressing changes Dressing Changes: Daily dressing change, Coverderm/Primapore Additional Instructions Remove steristrips on postop day 14. I have seen patient Chuck Lainez on 04/27/17. My clinical findings support the need for the requested home health care services because: Ltd mobility - disease progression Limited ability to care for self High risk of falls I certify that my clinical findings support that this patient is homebound because: Post-op weakness Unsteady gait/balance Unsafe to leave home unassisted Randy Krishnamurthy MD ([place]) Apr 27, 2017 20:51
[2017-04-27] MEDS: DOCUSATE SODIUM 100 MG CAP PO SCH (21:41)
[2017-04-27] MEDS: traZODone HCL 100 MG TAB PO SCH (21:41)
[2017-04-27] MEDS: ZOLPIDEM TARTRATE 5 MG TAB PO PRN (23:26)
[2017-04-27 23:48] VITALS: BP 158/80; PULSE 88; RESP 18; TEMP 97.9; O2SAT 97
[2017-04-28] MEDS: ACETAMINOPHEN/HYDROcodone 325 MG/7.5 MG TAB PO PRN ×4 (03:02→16:39)
[2017-04-28 04:18] VITALS: BP 141/77; PULSE 86; RESP 18; TEMP 96.7; O2SAT 98
[2017-04-28] MEDS: LEVOTHYROXINE SODIUM 50 MCG TAB PO SCH (05:18)
[2017-04-28] MEDS: MORPHINE SULFATE 30 MG CONTROLLED RELEASE TAB PO SCH ×2 (05:18→13:09)
[2017-04-28] MEDS: KETOROLAC TROMETHAMINE 30 MG/ML (IVP) VIAL IVP SCH (05:19)
[2017-04-28 07:00] LABS: HEMATOCRIT 32.9 % (39.0-51.0); REVIEW FLAG FINAL
--- NOTE | 2017-04-28 07:33 | PD.ORT.PN ---
Subjective Post Op Day #: 2 Subjective Remarks Some pain in hip and knee. Distance Walked 25 feet with platform walker and his prosthesis. Objective Vitals Vital Signs Date Time Temp Pulse Resp B/P Pulse Ox O2 Delivery O2 Flow Rate FiO2 04/28/17 04:18 96.7 86 18 141/77 98 04/28/17 04:00 18 04/27/17 23:48 97.9 88 18 158/80 97 04/27/17 19:35 99.0 86 18 156/74 93 04/27/17 16:00 98.0 84 18 140/68 94 04/27/17 11:40 96.8 81 18 141/82 93 04/27/17 07:42 96.7 75 18 134/72 93 04/27/17 07:32 Room Air I/O 04/27/17 04/27/17 04/27/17 04/28/17 04/28/17 04/28/17 06:59 14:59 22:59 06:59 14:59 22:59 Intake Total 937 ml 600 ml 240 ml 480 ml Output Total 375 ml 650 ml 550 ml 825 ml Balance 562 ml -50 ml -310 ml -345 ml Intake Oral 240 ml 600 ml 240 ml 480 ml IV Total 697 ml Output Urine Total 375 ml 650 ml 550 ml 825 ml # Bowel Movements 0 0 0 0 Result Diagram: 04/28/17 0636 04/27/17 1331 Imaging Last 72 hours Impressions Hip X-Ray 04/26/17 0000 Signed Impressions: Service Date/Time: Wednesday, April 26, 2017 12:17 - CONCLUSION: Expected changes are identified following recent right total hip arthroplasty. Chuck Sanchez MD Objective Remarks Resting comfortably supine in bed. Neurovascular status is intact, Assessment & Plan Problem List: (1) Status post total hip replacement, right Plan: Continue postop care and PT. Assessment and Plan Condition: Good. Orthopaedically stable. DVYT prophylaxis: TEDs, Plavix resumption, sequentials. Discharge plans: Home with HHC versus CIR versus SNF. Has appointment. Rx: [place] 7.5/325 Randy Krishnamurthy MD (Charles) Apr 28, 2017 07:33
[2017-04-28 08:00] VITALS: BP 147/70; PULSE 85; RESP 17; TEMP 96.9; O2SAT 93
[2017-04-28] MEDS: MAGNESIUM HYDROXIDE SUSP 30 ML CUP PO PRN (08:09)
[2017-04-28] MEDS: DOCUSATE SODIUM 100 MG CAP PO SCH (08:09)
[2017-04-28] MEDS: GABAPENTIN 250 MG/5 ML UDC PO SCH ×2 (08:09→13:09)
[2017-04-28] MEDS: LISINOPRIL 10 MG TAB PO SCH (08:09)
[2017-04-28] MEDS: CYCLOBENZAPRINE HCL 10 MG TAB PO SCH ×2 (08:09→13:09)
[2017-04-28] MEDS: CLOPIDOGREL 75 MG TAB PO SCH (08:09)
[2017-04-28] MEDS: METOPROLOL TARTRATE 25 MG TAB PO SCH (08:09)
[2017-04-28] MEDS: SODIUM CHLORIDE 0.9% FLUSH 5 ML FLUSH IVF SCH (08:14)
[2017-04-28] MEDS ORDERED: HYDR-3580 PO (08:14)
[2017-04-28] MEDS ORDERED: DEXTROSE 50% IN WATER 50 ML VIAL(D50) IV PRN (10:15)
[2017-04-28] MEDS ORDERED: GLUCAGON 1 MG/ML VIAL OTHER PRN (10:15)
[2017-04-28] MEDS ORDERED: INSULIN ASPART SUPPLEMENTAL SCALE SQ SCH (11:00)
[2017-04-28 12:00] VITALS: BP 139/68; PULSE 85; RESP 18; TEMP 96.3; O2SAT 96
[2017-04-28] MEDS: LACTATED RINGER'S 1000 ML INJ 1,000 ML IV SCH (12:00)
--- NOTE | 2017-04-28 13:41 | HHI.PR ---
Subjective Remarks pain controlled denies cp/sob denies fevers/chills denies diarrhea denies cough Objective Vitals Vital Signs Date Time Temp Pulse Resp B/P Pulse Ox O2 Delivery O2 Flow Rate FiO2 04/28/17 13:11 18 04/28/17 08:00 96.9 85 17 147/70 93 04/28/17 04:18 96.7 86 18 141/77 98 04/27/17 23:48 97.9 88 18 158/80 97 04/27/17 19:35 99.0 86 18 156/74 93 04/27/17 16:00 98.0 84 18 140/68 94 I/O 04/27/17 04/27/17 04/27/17 04/28/17 04/28/17 04/28/17 07:00 15:00 23:00 07:00 15:00 23:00 Intake Total 937 ml 600 ml 240 ml 480 ml Output Total 375 ml 650 ml 550 ml 825 ml Balance 562 ml -50 ml -310 ml -345 ml Intake Oral 240 ml 600 ml 240 ml 480 ml IV Total 697 ml Output Urine Total 375 ml 650 ml 550 ml 825 ml # Bowel Movements 0 0 0 0 Result Diagram: 04/28/17 0636 04/27/17 1331 Imaging Last Impressions Hip X-Ray 04/26/17 0000 Signed Impressions: Service Date/Time: Wednesday, April 26, 2017 12:17 - CONCLUSION: Expected changes are identified following recent right total hip arthroplasty. Chuck Sanchez MD Objective Remarks GENERAL: Well-nourished, well-developed male patient, in no apparent distress. SKIN: No rashes, ecchymoses or lesions. Warm and dry. HEAD: Atraumatic. Normocephalic. Pupils equal round and reactive. Extraocular motions intact. No scleral icterus. No injection or drainage. Nose without bleeding. Airway patent. NECK: Trachea midline. No JVD. Supple. CARDIOVASCULAR: Regular rate and rhythm. No murmur appreciated. RESPIRATORY: Clear to auscultation. Breath sounds equal bilaterally. No wheezes , rales, or rhonchi. GASTROINTESTINAL: Abdomen soft, non-tender, nondistended. No guarding. MUSCULOSKELETAL: Extremities without clubbing, cyanosis, or edema. No joint tenderness, effusion, or edema noted. Left hip dressing intact, clean, no ecchymosis. Right BKA noted. NEUROLOGICAL: Awake and alert. Cranial nerves II through XII intact. Motor and sensory grossly within normal limits. Five out of 5 muscle strength in all muscle groups. Normal speech. Right pedal pulses 2+. Procedures sp Right total hip arthroplasty. A/P Problem List: (1) Primary osteoarthritis of right hip ICD Code: M16.11 Status: Acute (2) Status post total hip replacement, right ICD Code: Z96.641 Status: Acute (3) Hyperglycemia ICD Code: R73.9 Status: Acute (4) HTN (hypertension) ICD Code: I10 Status: Chronic (5) Hypothyroidism ICD Code: E03.9 Status: Chronic Assessment and Plan Mr. Lainez is a 71-year-old male patient with a known medical history of hypertension and hyperlipidemia who underwent a right total hip replacement today by Dr. Krishnamurthy. Hospitalist team has been consulted for medical management. Status post right total hip replacement - Post op day #2 - Control pain. Morphine 30 mg PO q8hr. Toradol 15 mg q6h IV. [place] q4h PRN per pain scale. Morphine 5 mg IV q3h PRN breakthrough pain. - Monitor for constipation. Continue Colace 100 mg PO BID. Milk of magnesium and Dulcolax PRN. - Control nausea, no complaints at this time. Zofran 4 mg q6hr PRN. - Patient tolerated PT - Dressing changes and chemical prophylaxis per orthopedic surgeon. Hypertension, chronic: Controlled. Continue Metoprolol. CAD: Patient is cp free. continue statin, beta odalis, [place] inhibitor 8/3 Leukocytosis: Liely related to stress. Patient is afebrile and there are no other signs of infection. Monitor CBC w diff 8/ Hyperglycemia: check hemoglobin A1c. Start on SSI. no previous h/o diabetes. Other chronic medical problems include chronic nerve pain, depression, hypothyroidism and CAD which are stable at this time. Home medications continued as indicated. Discharge Planning Patient may be able to be discharged to rehab. Fu hemoglobin A1C. Ren Carbajal MD Apr 28, 2017 13:40
[2017-04-28 14:17] LABS: AUTOMATED NEUTROPHIL # 12.4 TH/MM3 (1.8-7.7); BASOPHIL # 0.3 TH/MM3 (0-0.2); BASOPHIL % 1.7 % (0.0-2.0); EOSINOPHIL # 0.6 TH/MM3 (0-0.4); EOSINOPHIL % 3.2 % (0.0-4.0); HEMATOCRIT 32.7 % (39.0-51.0); LYMPH % 17.2 % (9.0-44.0); LYMPHOCYTE # 3.1 TH/MM3 (1.0-4.8); MEAN CELL VOLUME 91.8 FL (80.0-100.0); MEAN CORPUSCULAR HEMOGLOBIN 29.3 PG (27.0-34.0); MONO % 8.7 % (0.0-8.0); NEUT % 69.2 % (16.0-70.0); PLATELET COUNT 352 TH/MM3 (150-450); RED BLOOD COUNT 3.57 MIL/MM3 (4.50-5.90); RED CELL DISTRIBUTION WIDTH 15.8 % (11.6-17.2)
[2017-04-28 14:23] LABS: HEMO FLAGS AUTO DIFF
[2017-04-28 14:29] LABS: ALT (GPT) 37 U/L (12-78); ANION GAP 7 MEQ/L (5-15); AST (GOT) 28 U/L (15-37); BLOOD UREA NITROGEN 16 MG/DL (7-18); CHLORIDE 108 MEQ/L (98-107); GLOMERULAR FILTRATION RATE 93 ML/MIN (>89); POTASSIUM 3.5 MEQ/L (3.5-5.1); SODIUM (NA) 142 MEQ/L (136-145)
[2017-04-28 14:31] LABS: ALKALINE PHOSPHATASE 178 U/L (45-117); TOTAL BILIRUBIN ADULT 0.3 MG/DL (0.2-1.0)
[2017-04-28 15:34] LABS: BASOPHILS 1 % (0-2); EOSINOPHILS 3 % (0-4); MYELOCYTES 1 % (0-0); NEUTROPHIL # MANUAL DIFF 11.7 TH/MM3 (1.8-7.7); POLYS (SEG NEUTROPHILS) 64 % (16-70); WBC DIFF SAMPLE 100
[2017-04-28 15:35] LABS: ACANTHOCYTES OCC (NORMAL)
[2017-04-28 15:36] LABS: PLATELET ESTIMATE SMEAR HIGH (NORMAL); PLATELET MORPHOLOGY NORMAL (NORMAL); SCAN/DIFF FINAL DIFF MANUAL
[2017-04-28 16:00] VITALS: BP 138/70; PULSE 85; RESP 18; TEMP 96.5; O2SAT 96
[2017-04-28 16:27] LABS: HEMOGLOBIN A1a 0.8 %; HEMOGLOBIN A1b 0.9 %; HEMOGLOBIN Ao 83.4 %; HEMOGLOBIN F 1.1 %; HEMOGLOBIN LA1C 2.4 %
== END 2017-04-28 17:31 | DRG 470 ==
LOC: HSDI 04-26 07:33 → N06B 04-26 13:06
PROVIDERS: ADMIT Orthopaedic Surgery; ATTEND Orthopaedic Surgery
PROC: 0SR904A Replacement of Right Hip Joint with Ceramic on Polyethylene Synthetic Substitute, Uncemented, Open Approach (ICD-10-PCS; principal; 2017-04-26 09:18)
DX: M16.11 Unilateral primary osteoarthritis, right hip (principal); I10 Essential (primary) hypertension; M24.672 Ankylosis, left ankle; Z89.512 Acquired absence of left leg below knee; M47.9 Spondylosis, unspecified; E78.5 Hyperlipidemia, unspecified; E03.9 Hypothyroidism, unspecified; Z87.891 Personal history of nicotine dependence; I25.10 Atherosclerotic heart disease of native coronary artery without angina pectoris; F32.9 Major depressive disorder, single episode, unspecified; Z95.5 Presence of coronary angioplasty implant and graft; Z90.81 Acquired absence of spleen; D72.829 Elevated white blood cell count, unspecified; R73.9 Hyperglycemia, unspecified
CPT/HCPCS: 73502; 80053; 83036; 83735; 84100; 85007; 85014; 85018; 85027; 86850; 86900; 86901; 87015; 87070; 87102; 87116; 87205; 87206; 88304; 88311; 94150; C1776; C9290; J0131; J0690; J1100; J1580; J1885; J2250; J2270; J2370; J2405; J2710; J3010; J7120; L1830

== ENCOUNTER 2017-09-21 11:46 | Emergency (ER) | payer MEDICARE, OTHER ==
[~2017-09-21] VITALS: Ht 185.4 cm; Wt 83.5 kg
[~2017-09-21 11:46] MED LIST changes: -CYCL1TAB29 PO; +HYDR-3583 PO; +LISI-515 PO; -LISI10TA3 PO; +TRAZ100T10 PO; -TRAZ100T6 PO
[2017-09-21 11:56] VITALS: BP 156/74; PULSE 72; RESP 16; TEMP 97.9; O2SAT 96
[2017-09-21] MEDS ORDERED: CLIN300C5 PO (12:40)
[2017-09-21] MEDS ORDERED: CYCL10TA PO (12:40)
[2017-09-21] MEDS ORDERED: MORPHINE SULFATE 2 MG/ML INJ IM ONE ×2 (12:45)
--- NOTE | 2017-09-21 13:13 | RADRPT ---
EXAM DATE/TIME: 09/21/2017 12:50 [facility] COMPARISON: No previous studies available for comparison. INDICATIONS : Right hip pain post fall. MEDICAL HISTORY : Hypertension. Arthritis. Myocardial infarction. Thyroid disease. SURGICAL HISTORY : Splenectomy. Cardiac stent. Hernia repair. Right hip replacement. Back fusion. ENCOUNTER: Initial ACUITY: 4 - 6 days PAIN SCORE: 8/10 LOCATION: Right hip FINDINGS: There is a total right hip arthroplasty in place. Arthroplasty components appear in gross anatomic al ignment and well-positioned. No roger-hardware lucency. No acute bony fracture or focal bony destructi on. Lower lumbar fixation hardware is also noted. Soft tissues are grossly unremarkable. No abnormal calcifications. CONCLUSION: 1. Right total hip arthroplasty without evidence for hardware failure. 2. No acute fracture or dislocation. Ted Dunn MD on September 21, 2017 at 13:09 Board Certified Radiologist. This report was verified electronically.
--- NOTE | 2017-09-21 13:21 | RADRPT ---
EXAM DATE/TIME: 09/21/2017 12:54 [facility] COMPARISON: No previous studies available for comparison. INDICATIONS : Left knee pain after twisting fall with prosthesis on. MEDICAL HISTORY : Myocardial infarction. Hypertension Arthritis. Thyroid disease. SURGICAL HISTORY : Splenectomy. Cardiac stent. Hernia repair. Left BKA. Right hip replacement. Back fusion. ENCOUNTER: Initial ACUITY: 4 - 6 days PAIN SCORE: 9/10 LOCATION: Left knee FINDINGS: Four view examination of the left knee demonstrates severe bone demineralization. Patient is status p ost below the knee amputation. There is no evidence of acute fracture or dislocation. There is no evidence of joint effusion. CONCLUSION: 1. Status post below the knee amputation. 2. Severe bone demineralization. 3. No evidence of acute fracture. Herrera Parrish MD on September 21, 2017 at 13:18 Board Certified Radiologist. This report was verified electronically.
[2017-09-21 13:54] VITALS: BP 153/77; PULSE 89; RESP 18; O2SAT 97
--- NOTE | 2017-09-21 14:21 | RADRPT ---
EXAM DATE/TIME: 09/21/2017 13:28 [facility] COMPARISON: No previous studies available for comparison. INDICATIONS : Chronic back pain status post back surgery 5 years ago. RADIATION DOSE: 40.11 CTDIvol (mGy) MEDICAL HISTORY : Cardiovascular disease. Hypertension. SURGICAL HISTORY : Lumbar surgery ENCOUNTER: Initial ACUITY: >1 yr PAIN SCALE: 5/10 LOCATION: Bilateral Paraspinal TECHNIQUE: Volumetric scanning of the lumbar spine was performed. Multiplanar reconstructions in the sagittal, coronal and oblique axial planes were performed. Using automated exposure control and adjustment of the mA and/or kV according to patient size, radiation dose was kept as low as reasonably achievable t o obtain optimal diagnostic quality images. DICOM format image data is available electronically for review and comparison. FINDINGS: Alignment: Intact without evidence of significant listhesis. Osseous structures and facet joints: Postsurgical changes are noted following discectomy, laminectomy and posterior fusion at L3-4. There are posterior fusion rods with transpedicular fixating screws. Vertebral body cage is noted. Vertebral body height is well maintained without evidence of compression deformity. There are no dest ructive changes. Significant facet arthropathy is identified at L4-5 and L5-S1. Moderate to severe spinal stenosis is identified at the L4-5 level secondary to hypertrophic facet arthropathy and thickened ligamentum fla vum. Intervertebral disc spaces: A small right posterolateral disc protrusion is identified at L4-5 causing foraminal encroachment. Intervertebral disc are otherwise unremarkable. Neurologic structures: Significant central crowding and compression of the nerve roots within the cauda equina are noted at L4-5. Left frontal digital for 5 day be significant and causing compression of the L4 nerve root. CONCLUSION: 1. Moderate to severe central spinal stenosis at L4-5 secondary to facet arthropathy and thickened li gamentum flavum. 2. Focal left posterior lateral disc protrusion at L4-5 with foraminal impingement. 3. Status post fusion at L3-4 as described. 4. No acute bony abnormalities. Herrera Parrish MD on September 21, 2017 at 14:10 Board Certified Radiologist. This report was verified electronically.
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
== END 2017-09-21 14:54 | disposition home or self-care (01) ==
LOC: PHED 11:46
DX: M48.061 Spinal stenosis, lumbar region without neurogenic claudication (principal); M25.562 Pain in left knee; G89.29 Other chronic pain; I10 Essential (primary) hypertension; M19.90 Unspecified osteoarthritis, unspecified site; E03.9 Hypothyroidism, unspecified; I25.2 Old myocardial infarction; F17.200 Nicotine dependence, unspecified, uncomplicated; Z89.512 Acquired absence of left leg below knee
CPT/HCPCS: 72131; 72170; 73564; 96372; 99285; J2270

== ENCOUNTER → 2017-10-10 | Outpatient (CLI) | payer MEDICARE, OTHER ==
[~2017-10-10] MED LIST changes: +CLIN300C5 PO; +CYCL10TA PO; -HYDR-3583 PO
[2017-10-10 13:50] LABS: HEMATOCRIT 42.2 % (39.0-51.0); HEMOGLOBIN 14.2 GM/DL (13.0-17.0); MEAN CELL VOLUME 89.1 FL (80.0-100.0); MEAN CORPUSCULAR HEMOGLOBIN 29.9 PG (27.0-34.0); MEAN CORPUSCULAR HGB CONC 33.6 % (32.0-36.0); MEAN PLATELET VOLUME 8.9 FL (7.0-11.0); PLATELET COUNT 399 TH/MM3 (150-450); RED BLOOD COUNT 4.73 MIL/MM3 (4.50-5.90); RED CELL DISTRIBUTION WIDTH 16.8 % (11.6-17.2); WHITE BLOOD COUNT 12.2 TH/MM3 (4.0-11.0)
[2017-10-10 13:54] LABS: ALBUMIN 3.7 GM/DL (3.4-5.0); AST (GOT) 24 U/L (15-37); BICARBONATE 26.5 MEQ/L (21.0-32.0); BLOOD UREA NITROGEN 8 MG/DL (7-18); CALCIUM 9.3 MG/DL (8.5-10.1); CHLORIDE 104 MEQ/L (98-107); CREATININE 0.76 MG/DL (0.60-1.30); GLOMERULAR FILTRATION RATE 101 ML/MIN (>89); GLUCOSE,FASTING 117 MG/DL (74-99); SODIUM (NA) 140 MEQ/L (136-145)
[2017-10-10 13:55] LABS: ALT (GPT) 32 U/L (12-78)
[2017-10-10 13:57] LABS: ALKALINE PHOSPHATASE 185 U/L (45-117); TOTAL BILIRUBIN ADULT 0.4 MG/DL (0.2-1.0); TOTAL PROTEIN 8.9 GM/DL (6.4-8.2)
== END ==
LOC: PLAB 10:10
PROVIDERS: ATTEND Family Medicine
DX: L03.116 Cellulitis of left lower limb (principal)
CPT/HCPCS: 36415; 80053; 85027

== ENCOUNTER 2017-12-02 18:28 | Emergency (ER) | payer MEDICARE, OTHER ==
[~2017-12-02] VITALS: Ht 185.4 cm; Wt 84.2 kg
[2017-12-02 18:50] VITALS: BP 167/100; PULSE 91; RESP 16; TEMP 97.9; O2SAT 94
[2017-12-02] MEDS ORDERED: PANTOPRAZOLE INJ 80 MG in SODIUM CHLORIDE 0.9% INJ 35 ML IV ONE (19:14)
[2017-12-02] MEDS ORDERED: PANTOPRAZOLE INJ 80 MG in SODIUM CHLORIDE 0.9% INJ 100 ML IV SCH (19:14)
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
[2017-12-02 20:04] VITALS: BP 166/99; PULSE 92; RESP 18; O2SAT 94
[2017-12-02 20:07] LABS: BILIRUBIN, URINE NEG (NEG); BLOOD, URINE TRACE (NEG); GLUCOSE,URINE NEG (NEG); KETONE, URINE NEG (NEG); NITRITE,URINE NEG (NEG); PH, URINE 5.5 (5.0-8.5); URINE COLOR YELLOW (YELLW/STRAW); URINE LEUKOCYTE ESTERASE NEG (NEG)
--- NOTE | 2017-12-02 20:07 | RADRPT ---
EXAM DATE/TIME: 12/02/2017 19:38 [facility] COMPARISON: CHEST SINGLE AP, April 28, 2017, 19:09. INDICATIONS : Hematemesis. MEDICAL HISTORY : Cardiovascular disease. Hypertension SURGICAL HISTORY : Lumbar surgery ENCOUNTER: Initial ACUITY: 1 week PAIN SCORE: 4/10 LOCATION: Bilateral chest FINDINGS: A single view of the chest demonstrates the lungs to be symmetrically aerated without evidence of mas s, infiltrate or effusion. The cardiomediastinal contours are unremarkable. Osseous structures are intact. Multiple hemoclips in the left upper quadrant. CONCLUSION: The lungs are clear. Buddy Kumar MD on December 02, 2017 at 20:05 Board Certified Radiologist. This report was verified electronically.
[2017-12-02 20:16] LABS: MUCUS URINE MANY /lpf (OCC); SQUAMOUS EPITHELIAL CELL URINE 0-5 /hpf (0-5)
[2017-12-02 20:17] LABS: BACTERIA, URINE RARE /hpf
[2017-12-02 20:20] LABS: AUTOMATED NEUTROPHIL # 11.1 TH/MM3 (1.8-7.7); BASOPHIL # 0.2 TH/MM3 (0-0.2); BASOPHIL % 1.3 % (0.0-2.0); EOSINOPHIL # 0.5 TH/MM3 (0-0.4); EOSINOPHIL % 3.2 % (0.0-4.0); HEMATOCRIT 43.7 % (39.0-51.0); HEMOGLOBIN 14.3 GM/DL (13.0-17.0); LYMPH % 24.1 % (9.0-44.0); MEAN CELL VOLUME 89.6 FL (80.0-100.0); MEAN CORPUSCULAR HEMOGLOBIN 29.4 PG (27.0-34.0); MEAN CORPUSCULAR HGB CONC 32.8 % (32.0-36.0); MEAN PLATELET VOLUME 8.9 FL (7.0-11.0); MONO % 5.1 % (0.0-8.0); MONOCYTE # 0.8 TH/MM3 (0-0.9); NEUT % 66.3 % (16.0-70.0); PLATELET COUNT 390 TH/MM3 (150-450); RED BLOOD COUNT 4.87 MIL/MM3 (4.50-5.90); RED CELL DISTRIBUTION WIDTH 15.6 % (11.6-17.2); WHITE BLOOD COUNT 16.6 TH/MM3 (4.0-11.0)
[2017-12-02 20:22] LABS: CHLORIDE 108 MEQ/L (98-107); SODIUM (NA) 141 MEQ/L (136-145)
[2017-12-02 20:26] LABS: ALBUMIN 3.5 GM/DL (3.4-5.0); BICARBONATE 23.2 MEQ/L (21.0-32.0); BLOOD UREA NITROGEN 13 MG/DL (7-18); GLUCOSE,RANDOM 110 MG/DL (74-106)
[2017-12-02 20:28] LABS: INTERNATIONAL NORMALIZED RATIO 1.2 RATIO
[2017-12-02 20:29] LABS: ALT (GPT) 21 U/L (12-78); AST (GOT) 21 U/L (15-37); CREATININE 0.75 MG/DL (0.60-1.30); GLOMERULAR FILTRATION RATE 103 ML/MIN (>89)
[2017-12-02 20:30] LABS: TOTAL BILIRUBIN ADULT 0.4 MG/DL (0.2-1.0)
[2017-12-02 20:31] LABS: TOTAL PROTEIN 9.1 GM/DL (6.4-8.2)
[2017-12-02 20:32] LABS: ALKALINE PHOSPHATASE 202 U/L (45-117)
[2017-12-02 20:34] LABS: TROPONIN I LESS THAN 0.02 NG/ML (0.02-0.05)
[2017-12-02 20:43] VITALS: BP 160/86; PULSE 84; RESP 18; O2SAT 94
[2017-12-02] MEDS ORDERED: ONDANSETRON HCL 4 MG/2 ML VIAL IV PUSH ONE (20:45)
[2017-12-02] MEDS ORDERED: MORPHINE SULFATE 2 MG/ML INJ IV PUSH ONE (20:45)
[2017-12-02] MEDS ORDERED: POTASSIUM CHLORIDE 20 MEQ CONTROLLED RELEASE TAB PO ONE (20:45)
[2017-12-02] MEDS ORDERED: IOHEXOL 350 MG/ML 10 ML VIAL (for RAD DIAG) IVCONTRAST ONE (21:37)
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
[2017-12-02 22:38] VITALS: BP 167/88; PULSE 87; RESP 16; O2SAT 94
--- NOTE | 2017-12-04 00:12 | EKG ---
Date Performed: 12/02/2017 Time Performed: 19:21:15 PTAGE: 72 years EKG: Sinus rhythm INCOMPLETE RIGHT BUNDLE BRANCH BLOCK MODERATE ST DEPRESSION ABNORMAL ECG PREVIOUS TRACING : 04/01/2017 08.46 Compared to prior tracing, ST depressions now noted DOCTOR: Praveen Zavaleta Interpretating Date/Time 12/04/2017 00:10:48
== END 2017-12-02 23:12 | disposition home or self-care (01) ==
LOC: PHED 18:28
DX: K92.0 Hematemesis (principal); E87.6 Hypokalemia; E03.9 Hypothyroidism, unspecified; F17.210 Nicotine dependence, cigarettes, uncomplicated; I10 Essential (primary) hypertension; I25.10 Atherosclerotic heart disease of native coronary artery without angina pectoris; R10.84 Generalized abdominal pain; Z79.02 Long term (current) use of antithrombotics/antiplatelets
CPT/HCPCS: 71045; 74177; 80053; 81001; 83690; 84484; 85025; 85610; 85730; 86850; 86900; 86901; 93005; 96365; 96366; 96375; 99285; C9113; J2270; J2405; Q9967

== ENCOUNTER → 2017-12-05 | Outpatient (CLI) | payer MEDICARE, OTHER ==
[~2017-12-05] MED LIST changes: -CLIN300C5 PO
[2017-12-05 14:02] LABS: HEMATOCRIT 39.9 % (39.0-51.0); HEMOGLOBIN 13.2 GM/DL (13.0-17.0); MEAN CELL VOLUME 90.5 FL (80.0-100.0); MEAN CORPUSCULAR HGB CONC 33.1 % (32.0-36.0); MEAN PLATELET VOLUME 8.7 FL (7.0-11.0); PLATELET COUNT 354 TH/MM3 (150-450); RED BLOOD COUNT 4.41 MIL/MM3 (4.50-5.90); RED CELL DISTRIBUTION WIDTH 16.3 % (11.6-17.2); WHITE BLOOD COUNT 13.9 TH/MM3 (4.0-11.0)
[2017-12-05 14:16] LABS: ALBUMIN 3.7 GM/DL (3.4-5.0); AST (GOT) 20 U/L (15-37); BICARBONATE 23.3 MEQ/L (21.0-32.0); BLOOD UREA NITROGEN 12 MG/DL (7-18); CALCIUM 9.5 MG/DL (8.5-10.1); CHLORIDE 107 MEQ/L (98-107); CREATININE 0.72 MG/DL (0.60-1.30); GLOMERULAR FILTRATION RATE 108 ML/MIN (>89); GLUCOSE,FASTING 98 MG/DL (74-99); SODIUM (NA) 141 MEQ/L (136-145)
[2017-12-05 14:18] LABS: CHOLESTEROL 107 MG/DL (120-200)
[2017-12-05 14:30] LABS: ALKALINE PHOSPHATASE 181 U/L (45-117); ALT (GPT) 23 U/L (12-78); CHOLESTEROL/ HDL RATIO 1.93 RATIO; HDL CHOLESTEROL 55.4 MG/DL (40.0-60.0); LDL CHOLESTEROL 41 MG/DL (0-99); TOTAL BILIRUBIN ADULT 0.5 MG/DL (0.2-1.0); TOTAL PROTEIN 8.8 GM/DL (6.4-8.2); TRIGLYCERIDES 51 MG/DL (42-150)
== END ==
LOC: PLAB 07:54
PROVIDERS: ATTEND Family Medicine
DX: I10 Essential (primary) hypertension (principal); I25.10 Atherosclerotic heart disease of native coronary artery without angina pectoris; E03.8 Other specified hypothyroidism; E78.2 Mixed hyperlipidemia; R97.20 Elevated prostate specific antigen [PSA]; Z96.641 Presence of right artificial hip joint
CPT/HCPCS: 36415; 80053; 80061; 83036; 84153; 84443; 85027